=== PATIENT | male | born 2005 | race Caucasian/White ===

== ENCOUNTER 2025-02-20 19:09 | Emergency (ER) | payer SELFPAY ==
[2025-02-20] MEDS: Acetaminophen/HYDROcodone 325-5 MG Tab PO ONE (22:07)
[2025-02-20] MEDS: Amoxicillin/Clavulanate K 875-125 MG Tab PO ONE (22:07)
== END 2025-02-20 22:17 | disposition home or self-care (01) ==
LOC: MW.ED 19:09
DX: K04.7 Periapical abscess without sinus (principal); K03.81 Cracked tooth
CPT/HCPCS: 41800; 99283; A9270